=== PATIENT | female | born 1985 | race Caucasian/White ===

== ENCOUNTER → 2016-10-09 | Outpatient (CLI) | payer BC ==
[~2016-10-09] MED LIST: CETI-176 PO; CLIN150C17 PO; CLIN300C11 PO; DOXY150T9 PO; ESCT10T PO; FLUO40CA12 PO; HYDR-3812 PO; LISD30CA3 PO; MULT-608 PO; TRL300 PO
--- OUTSIDE RECORDS SUMMARY | 2016-10-09 08:19 | XMS REPORT | Continuity of Care Document ---
Author Author [facility] Organization [facility] Address Unknown Phone Unavailable Care Team Providers Care Chemical Laboratory Assistant Name Role Phone TESFAYE DAIGLE DO PCP Insurance Providers Payer Name Policy Number Subscriber Name Relationship [facility] [id number] Summer Johnson Self / Same As Patient Advance Directives Directive Response Recorded Date/Time Advance Directives No 03/03/16 4:46pm Health Care Power of Double End Production Grinder No 03/03/16 4:46pm Organ Donor Yes 03/03/16 4:46pm Resuscitation Status Full Code 03/03/16 4:46pm Chief Complaint and Reason for Visit Chief Complaint Dental Problems/Pain Reason for Visit Dental abscess Problems Active Problems Medical Problem Onset Date Status Dental abscess Unknown Acute Medications Current Home Medications Medication Dose Units Route Directions Days/Qty Instructions Start Date Clindamycin Hcl 150 Mg 150 Mg Oral Three Times A Day 03/03/16 Fluoxetine Hcl 40 Mg 40 Mg Oral Twice A Day 03/03/16 Clindamycin Hcl 300 Mg 300 Mg Oral Four Times Daily 32 03/03/16 Hydrocodone/Acetaminophen 1 Each 1 Each Oral Every 4HRS as needed for Pain 20 03/03/16 Past Home Medications Medication Directions Ordered Status Escitalopram Oxalate 10 Mg Tablet, 1 Each Oral Daily 05/03/12 Discontinued Multivitamins 1 Tab Tablet, 1 Tab Oral Daily 05/03/12 Discontinued Cetirizine Hcl 10 Mg Tablet, 10 Mg Oral Daily 05/03/12 Discontinued Oxcarbazepine 300 Mg Tab, 1 Tab Oral Bedtime 05/03/12 Discontinued Doxycycline Hyclate 150 Mg Tablet.dr, 100 Mg Oral 11/25/12 Discontinued Social History Social History Problem Response Recorded Date/Time Alcohol Use Denies Use 03/03/2016 4:46pm Recreational Drug Use No 03/03/2016 4:46pm Recent Foreign Travel No 03/03/2016 4:43pm Recent Infectious Disease Exposure No 03/03/2016 4:43pm Smoking Status Never a Smoker 03/03/2016 4:46pm Do you dip or chew tobacco? No 03/03/2016 4:46pm Query Response Start Date Stop Date Smoking Status Never a Smoker Hospital Discharge Instructions No hospital discharge instructions. Plan of Care Discharge Date 03/03/16 6:12pm Disposition 01 HOME, SELF-CARE Condition at Discharge Improved Instructions/Education Provided Dental Abscess (ED) Forms Provided Work Release Form Prescriptions See Medication Section Referrals TESFAYE DAIGLE DO - Primary Care Physician Additional Instructions/Education All discharge instructions reviewed with patient and/or family. Voiced understanding. Medications as instructed. Increase kanamycin to 300 mg by mouth 4 times daily. Ibuprofen 800 mg by mouth every 8 hours as needed for pain. Ice pack or heating pad as needed for pain. Soft diet. Follow-up with Dr. Talbot as an outpatient this week for recheck, call for appointment time. Return to the emergency department for worsened pain, swelling, difficulty swallowing, difficulty breathing, vomiting, decreased urination, headache, dizziness, or any other concerns. Functional Status No functional status results. Allergies, Adverse Reactions, Alerts Allergen Type Severity Reaction Status Last Updated Penicillins ([id number]) Allergy Unknown Active 05/14/09 Immunizations No immunization records. Vital Signs Acute Vital Signs Vital Response Date/Time Temperature (Fahrenheit) 96.4 degrees F (97.6 - 99.5) 03/03/2016 4:43pm Temperature (Calculated Celsius) 35.49837 degrees C (36.4 - 37.5) 03/03/2016 4:43pm Temperature Source Temporal 03/03/2016 4:43pm Pulse Rate (adult) 88 bpm (60 - 90) 03/03/2016 4:43pm Respiratory Rate 16 bpm (12 - 24) 03/03/2016 4:43pm O2 Sat by Pulse Oximetry 97 % (88 - 100) 03/03/2016 4:43pm Blood Pressure 122/85 mm Hg 03/03/2016 4:43pm Blood Pressure Mean 97 mm Hg 03/03/2016 4:43pm Pain Pain Intensity 8 03/03/2016 4:43pm Height (Feet) 5 feet 03/03/2016 4:43pm Height (Inches) 6 inches 03/03/2016 4:43pm Height (Calculated Centimeters) 167.216004 cm 03/03/2016 4:43pm Weight (Pounds) 140 pounds 03/03/2016 4:43pm Weight (Calculated Kilograms) 63.238418 kilograms 03/03/2016 4:43pm Height 5 ft 6 in Weight 140 lb Body Mass Index 22.6 kg/m^2 Results No known relevant diagnostic tests, laboratory data and/or discharge summary. Procedures No known history of procedures. Encounters Encounter Location Arrival/Admit Date Discharge/Depart Date Attending Provider Departed Emergency Room [facility] 03/03/16 4:39pm 03/03 6:12pm LAUREN GRANDE Recent Diagnosis
--- NOTE | 2016-10-09 11:31 | Diagnostic Imaging Report ---
PROCEDURE: US Thyroid. TECHNIQUE: Multiple real-time grayscale images were obtained of the thyroid in various projections. INDICATION: Fatigue. Hoarseness. Cholecystectomy. FINDINGS: The right thyroid lobe is 4.3 x 1.6 x 1.4 cm. The left lobe is 3.8 x 1.3 x 1.1 cm. There is a thyroid nodule in the upper left lobe measuring 0.7 x 0.6 x 0.6 cm with minimum internal vascularity demonstrated on color Doppler. A smaller hypoechoic nodule in the mid left lobe measuring 5 mm is mostly cystic, probably a colloid cyst. No definite nodule in the right thyroid lobe. IMPRESSION: Solid nodule in the left thyroid lobe superiorly measuring up to 7 mm in size. A followup study in six months is suggested to ensure stability. Dictated by: Dictated on workstation # [id number]
== END ==
LOC: RAD 08:15
PROVIDERS: ATTEND Nurse Practitioner Family
DX: R53.83 Other fatigue (principal); R49.0 Dysphonia; R13.10 Dysphagia, unspecified; E04.1 Nontoxic single thyroid nodule
CPT/HCPCS: 76536

== ENCOUNTER → 2016-11-04 | Outpatient (CLI) | payer BC ==
[~2016-11-04] MED LIST changes: +BARIUM SUSPENSION 105% (LIQUID POLIBAR PLUS) 240 ML/DOSE PO ONE; +BARIUM SUSPENSION 60% (LIQUID EZ PAQUE) 240 ML DOSE PO ONE
--- OUTSIDE RECORDS SUMMARY | 2016-11-04 10:03 | XMS REPORT | Continuity of Care Document ---
Author Author [facility] Organization [facility] Address Unknown Phone Unavailable Care Team Providers Care Commercial Real Estate Sales Manager Name Role Phone TESFAYE DAIGLE DO PCP Insurance Providers Payer Name Policy Number Subscriber Name Relationship [facility] [id number] Summer Johnson Self / Same As Patient Advance Directives Directive Response Recorded Date/Time Advance Directives No 03/03/16 4:46pm Health Care Power of Bit Tapper No 03/03/16 4:46pm Organ Donor Yes 03/03/16 [...] Type Severity Reaction Status Last Updated Penicillins ([id number]) Allergy Unknown Active 05/14/09 Immunizations No immunization records. Vital Signs Acute Vital Signs Vital Response Date/Time Temperature (Fahrenheit) 96.4 degrees F (97.6 - 99.5) 03/03/2016 4:43pm Temperature (Calculated Celsius) 35.58945 degrees C (36.4 - 37.5) 03/03/2016 4:43pm [...] 6 inches 03/03/2016 4:43pm Height (Calculated Centimeters) 167.809978 cm 03/03/2016 4:43pm Weight (Pounds) 140 pounds 03/03/2016 4:43pm Weight (Calculated Kilograms) 63.403255 kilograms 03/03/2016 4:43pm Height 5 ft 6 in Weight 140 lb Body Mass Index 22.6 kg/m^2 Results No known relevant diagnostic tests, laboratory data and/or discharge summary. Procedures No known history of procedures. Encounters Encounter Location Arrival/Admit Date Discharge/Depart Date Attending Provider Departed Emergency Room [facility] 03/03/16 4:39pm 03/03 6:12pm LAUREN GRANDE Recent Diagnosis
--- NOTE | 2016-11-04 11:12 | Diagnostic Imaging Report ---
EXAMINATION: Barium swallow double-contrast. INDICATION: Dysphagia Fluoroscopy time: One minute and 29 seconds TECHNIQUE: Sintering Press Operator image of the chest was performed. Subsequently, the patient was given gas forming granules for oral ingestion followed by thick and thin barium to drink. Swallowing through the esophagus was observed with fluoroscopy and overhead images, as well as multiple spot images in the upright and prone positions, were taken. FINDINGS: Sintering Press Operator image of the chest demonstrate scoliosis of the thoracic spine convex to the right with fusion hardware seen. No significant reflux is seen during the study. Normal motility seen. The esophagus is normal in caliber and contour. There is no mucosal abnormality, diverticulum or filling defect to suggest a mass. There is no hiatal hernia demonstrated. IMPRESSION: Unremarkable barium swallow. Dictated by: Dictated on workstation # [id number]
== END ==
LOC: RAD 10:00
PROVIDERS: ATTEND Nurse Practitioner Family
DX: R13.10 Dysphagia, unspecified (principal)
CPT/HCPCS: 74220

== ENCOUNTER → 2016-11-14 | Outpatient (CLI) | payer BC ==
[~2016-11-14] MED LIST changes: -BARIUM SUSPENSION 105% (LIQUID POLIBAR PLUS) 240 ML/DOSE PO ONE; -BARIUM SUSPENSION 60% (LIQUID EZ PAQUE) 240 ML DOSE PO ONE
--- OUTSIDE RECORDS SUMMARY | 2016-11-14 10:10 | XMS REPORT | Continuity of Care Document ---
Author Author [facility] Organization [facility] Address Unknown Phone Unavailable Care Team Providers Care Basin Cleaner Name Role Phone TESFAYE DAIGLE DO PCP Insurance Providers Payer Name Policy Number Subscriber Name Relationship [facility] [id number] Summer Johnson Self / Same As Patient Advance Directives Directive Response Recorded Date/Time Advance Directives No 03/03/16 4:46pm Health Care Power of Drywall Hanger Framer No 03/03/16 4:46pm Organ Donor Yes 03/03/16 [...] Type Severity Reaction Status Last Updated Penicillins ([id number]) Allergy Unknown Active 05/14/09 Immunizations No immunization records. Vital Signs Acute Vital Signs Vital Response Date/Time Temperature (Fahrenheit) 96.4 degrees F (97.6 - 99.5) 03/03/2016 4:43pm Temperature (Calculated Celsius) 35.86847 degrees C (36.4 - 37.5) 03/03/2016 4:43pm [...] 6 inches 03/03/2016 4:43pm Height (Calculated Centimeters) 167.084703 cm 03/03/2016 4:43pm Weight (Pounds) 140 pounds 03/03/2016 4:43pm Weight (Calculated Kilograms) 63.229029 kilograms 03/03/2016 4:43pm Height 5 ft 6 in Weight 140 lb Body Mass Index 22.6 kg/m^2 Results No known relevant diagnostic tests, laboratory data and/or discharge summary. Procedures No known history of procedures. Encounters Encounter Location Arrival/Admit Date Discharge/Depart Date Attending Provider Departed Emergency Room [facility] 03/03/16 4:39pm 03/03 6:12pm LAUREN GRANDE Recent Diagnosis
--- NOTE | 2016-11-14 12:54 | Diagnostic Imaging Report ---
PROCEDURE: MRI left joint lower extremity without contrast. TECHNIQUE: Multiplanar, multisequence non contrast-enhanced MRI of the left lower extremity was accomplished. INDICATION: Left hip pain. FINDINGS: There is no marrow signal abnormality around the left hip. No evidence of avascular necrosis or stress fracture. There is symmetric small amount of fluid seen in the hip joints could be physiologic or related to small effusions. The articular surface appears congruent and smooth. The labrum appears grossly unremarkable. No osteochondral lesion is identified. The iliopsoas tendon, the origin of the hamstring tendons and insertion of the gluteus medius and minimus muscles on the greater trochanter all appear unremarkable. The muscle bulk and signal around the hip is normal. No fluid collections or bursal distention seen. IMPRESSION: Minimal amount of joint fluid in the hips bilaterally, could be physiologic or small effusions. No significant abnormality otherwise. Dictated by: Dictated on workstation # [id number]
== END ==
LOC: RAD 10:06
PROVIDERS: ATTEND Nurse Practitioner Family
DX: M25.552 Pain in left hip (principal)
CPT/HCPCS: 73721

== ENCOUNTER → 2016-11-20 | Outpatient (CLI) | payer BC ==
--- OUTSIDE RECORDS SUMMARY | 2016-11-20 06:02 | XMS REPORT | Continuity of Care Document ---
Author Author [facility] Organization [facility] Address Unknown Phone Unavailable Care Team Providers Care Care Advocate Name Role Phone TESFAYE DAIGLE DO PCP Insurance Providers Payer Name Policy Number Subscriber Name Relationship [facility] [id number] Summre Johnson Self / Same As Patient Advance Directives Directive Response Recorded Date/Time Advance Directives No 03/03/16 4:46pm Health Care Power of Offal Roller No 03/03/16 4:46pm Organ Donor Yes 03/03/16 [...] Type Severity Reaction Status Last Updated Penicillins ([id number]) Allergy Unknown Active 05/14/09 Immunizations No immunization records. Vital Signs Acute Vital Signs Vital Response Date/Time Temperature (Fahrenheit) 96.4 degrees F (97.6 - 99.5) 03/03/2016 4:43pm Temperature (Calculated Celsius) 35.35438 degrees C (36.4 - 37.5) 03/03/2016 4:43pm [...] 6 inches 03/03/2016 4:43pm Height (Calculated Centimeters) 167.700496 cm 03/03/2016 4:43pm Weight (Pounds) 140 pounds 03/03/2016 4:43pm Weight (Calculated Kilograms) 63.659626 kilograms 03/03/2016 4:43pm Height 5 ft 6 in Weight 140 lb Body Mass Index 22.6 kg/m^2 Results No known relevant diagnostic tests, laboratory data and/or discharge summary. Procedures No known history of procedures. Encounters Encounter Location Arrival/Admit Date Discharge/Depart Date Attending Provider Departed Emergency Room [facility] 03/03/16 4:39pm 03/03 6:12pm LAUREN GRANDE Recent Diagnosis
== END ==
LOC: PREOP 05:58
PROVIDERS: ATTEND Surgery
DX: Z01.818 Encounter for other preprocedural examination (principal); K92.1 Melena; R13.10 Dysphagia, unspecified; Z80.0 Family history of malignant neoplasm of digestive organs; Z86.010 Personal history of colon polyps

== ENCOUNTER 2016-11-24 09:43 | Day surgery (SDC) | payer BC ==
[~2016-11-24] VITALS: Ht 167.6 cm; Wt 63.5 kg
[~2016-11-24 09:43] MED LIST changes: -LISD30CA3 PO
[2016-11-24 09:45] VITALS: BP 113/79
--- OUTSIDE RECORDS SUMMARY | 2016-11-24 09:47 | XMS REPORT | Continuity of Care Document ---
Author Author [facility] Organization [facility] Address Unknown Phone Unavailable Care Team Providers Care Pulp Machine Operator Name Role Phone TESFAYE DAIGLE DO PCP Insurance Providers Payer Name Policy Number Subscriber Name Relationship [facility] [id number] Summer Johnson Self / Same As Patient Advance Directives Directive Response Recorded Date/Time Advance Directives No 03/03/16 4:46pm Health Care Power of Programming Engineer No 03/03/16 4:46pm Organ Donor Yes 03/03/16 [...] Type Severity Reaction Status Last Updated Penicillins ([id number]) Allergy Unknown Active 05/14/09 Immunizations No immunization records. Vital Signs Acute Vital Signs Vital Response Date/Time Temperature (Fahrenheit) 96.4 degrees F (97.6 - 99.5) 03/03/2016 4:43pm Temperature (Calculated Celsius) 35.32157 degrees C (36.4 - 37.5) 03/03/2016 4:43pm [...] 6 inches 03/03/2016 4:43pm Height (Calculated Centimeters) 167.180759 cm 03/03/2016 4:43pm Weight (Pounds) 140 pounds 03/03/2016 4:43pm Weight (Calculated Kilograms) 63.825965 kilograms 03/03/2016 4:43pm Height 5 ft 6 in Weight 140 lb Body Mass Index 22.6 kg/m^2 Results No known relevant diagnostic tests, laboratory data and/or discharge summary. Procedures No known history of procedures. Encounters Encounter Location Arrival/Admit Date Discharge/Depart Date Attending Provider Departed Emergency Room [facility] 03/03/16 4:39pm 03/03 6:12pm LAUREN GRANDE Recent Diagnosis
--- OUTSIDE RECORDS SUMMARY | 2016-11-24 09:48 | XMS REPORT | Continuity of Care Document ---
Author Author [facility] Organization [facility] Address Unknown Phone Unavailable Care Team Providers Care Lpn Medical Assistant Name Role Phone TESFAYE DAIGLE DO PCP Insurance Providers Payer Name Policy Number Subscriber Name Relationship [facility] [id number] Summer Johnson Self / Same As Patient Advance Directives Directive Response Recorded Date/Time Advance Directives No 03/03/16 4:46pm Health Care Power of Cashier Payments Received No 03/03/16 4:46pm Organ Donor Yes 03/03/16 [...] Type Severity Reaction Status Last Updated Penicillins ([id number]) Allergy Unknown Active 05/14/09 Immunizations No immunization records. Vital Signs Acute Vital Signs Vital Response Date/Time Temperature (Fahrenheit) 96.4 degrees F (97.6 - 99.5) 03/03/2016 4:43pm Temperature (Calculated Celsius) 35.56534 degrees C (36.4 - 37.5) 03/03/2016 4:43pm [...] 6 inches 03/03/2016 4:43pm Height (Calculated Centimeters) 167.262111 cm 03/03/2016 4:43pm Weight (Pounds) 140 pounds 03/03/2016 4:43pm Weight (Calculated Kilograms) 63.118576 kilograms 03/03/2016 4:43pm Height 5 ft 6 in Weight 140 lb Body Mass Index 22.6 kg/m^2 Results No known relevant diagnostic tests, laboratory data and/or discharge summary. Procedures No known history of procedures. Encounters Encounter Location Arrival/Admit Date Discharge/Depart Date Attending Provider Departed Emergency Room [facility] 03/03/16 4:39pm 03/03 6:12pm LAUREN GRANDE Recent Diagnosis
[2016-11-24] MEDS ORDERED: MIDAZOLAM 2 MG/2 ML (VERSED) VIAL IVP PRN (10:00)
[2016-11-24] MEDS ORDERED: fentaNYL INJECTION 100 MCG/2 ML AMP IVP PRN (10:00)
[2016-11-24] MEDS ORDERED: HURRICAINE EXT TUBE (BENZOCAINE) XX PRN (10:00)
[2016-11-24] MEDS ORDERED: NS IV 500 ML 500 ML IV PRN (10:00)
[2016-11-24] MEDS ORDERED: NALOXONE 0.4 MG/ML 1 ML (NARCAN) VIAL IVP PRN (10:00)
[2016-11-24] MEDS ORDERED: FLUMAZENIL (ROMAZICON) 0.1 MG/ML 5 ML VIAL INJ PRN (10:00)
--- NOTE | 2016-11-24 10:13 | Pre-Op Note & Conscious Sedat ---
Pre-Operative Progress Note H&P Reviewed The H&P was reviewed, patient examined and no changes noted. Date H&P Reviewed: Nov 24, 2016 Time H&P Reviewed: 10:13 Pre-Op Diagnosis: dysphagia. Blood in stools. History of polyps Conscious Sedation Pre-Proced ASA Class: 2 Airway Mallampati Classification: ([place] appropriate class) I. II. III, IV Lungs Heart ASA score ASA 1: a normal healthy patient ASA 2: a patient with a mild systemic disease (mid diabetes, controlled hypertension, obesity ASA 3: a patient with a severe systemic disease that limits activity (angina , COPD, prior Myocardial infarction) ASA 4: a patient with an incapacitating disease that is a constant threat to life (CHF, renal failure) ASA 5: a moribund patient not expected to survive 24 hrs. (ruptured aneurysm) ASA 6: a declared brain patient whose organs are being harvested. For emergent operations, add the letter E after the classification Grade 1 Sedation Plan: Discussed options with patient/fam Note The patient is an appropriate candidate to undergo the planned procedure, sedation, and anesthesia. The patient immediately re-assessed prior to indication. HÉCTOR BLAIR MD Nov 24, 2016 10:13 am
[2016-11-24] MEDS ORDERED: proPOfol 200 MG/20 ML (DIPRIVAN) VIAL IV ONE (11:38)
[2016-11-24] MEDS ORDERED: MIDAZOLAM 2 MG/2 ML (VERSED) VIAL ONE (11:38)
[2016-11-24] MEDS ORDERED: HURRICAINE EXT TUBE (BENZOCAINE) ONE (11:44)
[2016-11-24] MEDS ORDERED: LISD30CA3 PO (11:45)
[2016-11-24] MEDS ORDERED: NS IV 500 ML 500 ML ONE (12:05)
[2016-11-24 12:30] VITALS: BP 113/79
--- NOTE | 2016-11-24 12:30 | Progress Note-Post Operative ---
Post-Operative Progess Note Pre-Operative Diagnosis dysphagia. Blood in stools. History of polyps Post-Operative Diagnosis hiatal hernia with esophageal stricture Normal colonoscopy Post-Op Procedure Note Date of Procedure: Nov 24, 2016 Name of Procedure: EGD with balloon dilatation Colonoscopy to cecum Anesthesia Type sedation HÉCTOR BLAIR MD Nov 24, 2016 12:30 pm
--- NOTE | 2016-11-24 12:31 | Discharge Inst-Simple/Standard ---
Discharge Inst-Standard Discharge Medications New, Converted or Re-Newed RX: Other Patient Instructions/Follow Up Plan of Care/Instructions/FU: repeat colonoscopy in 5 years Activity as Tolerated: No Discharge Diet: No Restrictions HÉCTOR BLAIR MD Nov 24, 2016 12:31 pm
[2016-11-24 13:00] VITALS: BP 111/76
--- NOTE | 2016-11-24 13:00 | PROCEDURE REPORT ---
PROCEDURE PHYSICIAN: HÉCTOR BLAIR DATE OF PROCEDURE: 11/24/2016 PROCEDURES: 1. Upper GI endoscopy/balloon dilatation. 2. Colonoscopy. SURGEON: Dr. Blair. INDICATION FOR THE PROCEDURE: This lady came in for an upper endoscopy with an intent to possibly perform balloon dilatation of any stricture that might be encountered, based on the report of dysphagia. Concomitant colonoscopy for polyp surveillance and on the basis of strong family history of colon cancer was also offered. Informed consent was obtained after reviewing the procedures in detail. DESCRIPTION OF PROCEDURE: 1. UPPER GI ENDOSCOPY/BALLOON DILATATION: She was placed in left lateral decubitus position and her vital signs were monitored. Conscious sedation was achieved using propofol infusion by our anesthesiologist. The flexible gastroscope was then introduced down the esophagus, past the stomach, into the proximal duodenum. FINDINGS: ESOPHAGUS: Hiatal hernia with a concentric stricture within it. It was dilated to 20 mm with a balloon. STOMACH: Normal. DUODENUM: Normal. She tolerated the procedure well and was turned around in preparation for colonoscopy. IMPRESSION: 1. Dysphagia due to esophageal stricture. 2. Balloon dilatation completed. 2. COLONOSCOPY: Digital rectal examination was unremarkable. The colonoscope was then introduced into the rectum and advanced all the way up to the cecum. It was then withdrawn slowly and the mucosa examined in a systematic fashion. There was no recurrence of a polyp. She tolerated the procedures well and was taken back to the nursing area in a stable condition. IMPRESSION: 1. Polyp surveillance. 2. Family history of colon cancer. 3. Normal examination. 4. Recommend screening exam in 5 years in view of a strong family history of colon cancer from both sides of her family. Job ID: [id number] Dictated Date: 11/24/2016 12:06:57 Bladder Blower Date: 11/24/2016 12:56:02 / julian SANDHU
[2016-11-24 13:05] VITALS: BP 111/76
== END 2016-11-24 13:05 | disposition home or self-care (01) ==
LOC: ENDO 09:43
PROVIDERS: ATTEND Surgery
DX: K22.2 Esophageal obstruction (principal); Z80.0 Family history of malignant neoplasm of digestive organs; Z86.010 Personal history of colon polyps
CPT/HCPCS: 84703

== ENCOUNTER → 2017-04-02 | Outpatient (CLI) | payer BC ==
[~2017-04-02] MED LIST changes: +LISD30CA3 PO
== END ==
LOC: LAB 11:08
DX: R53.83 Other fatigue (principal); R63.5 Abnormal weight gain; G43.909 Migraine, unspecified, not intractable, without status migrainosus; E88.81 Metabolic syndrome and other insulin resistance
CPT/HCPCS: 36415; 82951; 82952; 82962

== ENCOUNTER 2017-04-14 12:15 | Outpatient (RCR) | payer BC ==
[2017-04-14 12:25] LABS: BILIRUBIN,URINE NEGATIVE (NEGATIVE); KETONES,URINE NEGATIVE (NEGATIVE); LEUKOCYTE ESTERASE ,URINE NEGATIVE (NEGATIVE); NITRITE,URINE NEGATIVE (NEGATIVE); PH,URINE 6 (5-9); PROTEIN,URINE NEGATIVE (NEGATIVE); UROBILINOGEN,URINE NORMAL (NORMAL)
[2017-04-14 13:10] LABS: WBC,URINE RARE /HPF
== END 2017-07-04 | disposition home or self-care (01) ==
LOC: LAB 12:15
DX: R63.5 Abnormal weight gain (principal); R53.83 Other fatigue
CPT/HCPCS: 81000

== ENCOUNTER → 2017-05-08 | Outpatient (CLI) | payer BC ==
--- NOTE | 2017-05-08 17:33 | Diagnostic Imaging Report ---
PROCEDURE: US Thyroid. TECHNIQUE: Multiple real-time grayscale images were obtained of the thyroid in various projections. INDICATION: Followup of thyroid nodule. COMPARISON: Comparison with 10/09/2016. FINDINGS: The right lobe measures 4 x 1.3 x 1.5 cm. The left lobe measures 4.3 x 1.2 x 1.2 cm. There is a 6 mm oval hypoechoic solid nodule in the upper pole of the left lobe. There is a 3 mm hypoechoic lesion just beneath this. IMPRESSION: 6 mm hypoechoic well-circumscribed nodule upper pole left lobe of the thyroid which is stable when compared with 10/09/2016. Dictated by: Dictated on workstation # [id number]
== END ==
LOC: RAD 14:48
PROVIDERS: ATTEND Nurse Practitioner Family
DX: E04.1 Nontoxic single thyroid nodule (principal)
CPT/HCPCS: 76536